=== PATIENT | female | born 1980 | race Two or more races ===

== ENCOUNTER 2019-05-05 00:23 | Emergency (ER) | payer OTHER ==
--- NOTE | 2019-05-05 01:23 | NUR ---
CALLED FOR TRIAGE . NO ANSWER
--- NOTE | 2019-05-05 01:54 | NUR ---
CALLED FOR TRIAGE. NO REPONSE.
--- NOTE | 2019-05-05 01:56 | NUR ---
PT HAS LEFT THE HOSPITAL WITHOUT BEING TRIAGED.
== END 2019-05-05 01:58 | disposition left against medical advice (07) ==
LOC: ER 00:26
DX: Z53.21 Procedure and treatment not carried out due to patient leaving prior to being seen by health care provider (principal)